=== PATIENT | female | born 1980 | race Caucasian/White ===

== ENCOUNTER 2018-10-06 16:53 | Emergency (ER) | payer OTHER ==
[~2018-10-06] VITALS: Ht 162.6 cm; Wt 103.9 kg
--- NOTE | 2018-10-06 17:00 | NUR ---
PT AMBULATED TO ER BED 11
[2018-10-06 17:02] VITALS: BP 11/75
--- NOTE | 2018-10-06 17:20 | NUR ---
PT TO ED FOR C/O THROAT PAIN X 2 DAYS. PT REPORTS PAIN UPON SWALLOWING. PT REPORTS SICK FAMILY MEMBERS AT HOME. MILD REDNESS NOTED TO THROAT. NO ACUTE DISTRESS NOTED. PT PLACED INTO BED. PENDING MD NESS.
[2018-10-06 17:42] VITALS: BP 111/75
--- NOTE | 2018-10-06 17:43 | NUR ---
Patient discharged with v/s stable. Written and verbal after care instructions given and explained. Patient alert, oriented and verbalized understanding of instructions. Ambulatory with steady gait. All questions addressed prior to discharge. ID band removed. Patient advised to follow up with PMD. Rx of AMOXICILIN, MOTRIN given. Patient educated on indication of medication including possible reaction and side effects. Opportunity to ask questions provided and answered.
== END 2018-10-06 17:43 | disposition home or self-care (01) ==
LOC: MED 16:53
DX: J02.9 Acute pharyngitis, unspecified (principal)
CPT/HCPCS: 99283